=== PATIENT | male | born 1975 | race Hispanic/Latino ===

== ENCOUNTER 2022-10-07 12:25 | Emergency (ER) | payer SELFPAY ==
--- OUTSIDE RECORDS SUMMARY | 2022-10-07 12:28 | XMS REPORT | Continuity of Care Document ---
:1975 Author Organization [facility] Address [address] [address] [address] [place] [address] Care Team Providers Name Role Phone SONJA Attending Clinician Unavailable SONJA Admitting Clinician Unavailable Payers Payer Name Policy Type Policy Number Effective Date Expiration Date S ource Problems This patient has no known problems. Allergies, Adverse Reactions, Alerts This patient has no known allergies or adverse reactions. Medications This patient has no known medications. Immunizations Ordered Immunization Filled Immunization Date Status Commen ts Source Name Name COVID-19 vaccine, COVID-19 vaccine, 2020-05-17 Completed [facility] vector-nr, rS-Ad26, vector-nr, rS-Ad26, 09:26:13 [facility] PF, 0.5 mL PF, 0.5 mL Outreach Progr am Procedures This patient has no known procedures. Encounters Start End Encounter Admission Attending Care Care Encounter Source Date/Time Date/Time Type Type Clinicians Facility Department ID 2020-05-21 2020-05-21 Outpatient BLAYNE REDDY [facility] [id number] [place] 01:03:00 01:03:00 [facility] [id number] [facility] 2020-05-17 2020-05-17 Outpatient [facility] [id number] [place] 09:28:00 09:28:[id number] [facility] [facility] 2020-05-17 2020-05-17 [facility] [place] - [id number] [place] 00:00:00 00:00:00 Aiden Horowitz MD: [id number] Jew Ep[facility] copy chief [place] [address] [facility] [address], [facility] Program [id number] , Ph. 2020-05-16 2020-05-16 Outpatient [facility] [id number] [place] 01:58:00 01:58:00 [facility] [id number] [facility] This patient has no known results.
[2022-10-07] MEDS ORDERED: NA CHLORIDE 0.9% 1,000 ML ONE (13:07)
[2022-10-07 13:13] LABS: Absolute Lymphocytes (CBC) 1.8 K/uL (0.7-4.9); Hematocrit 47.6 % (39.6-49.0); Lymphocytes % 19.3 % (15.3-44.8); MCV 85.4 fL (80-100); MPV 9.2 fL (7.6-11.3); Platelets 244 thou/uL (152-406); RBC Red Blood Cell Count 5.58 M/uL (4.33-5.43)
[2022-10-07 13:26] LABS: Albumin 3.4 g/dL (3.4-5.0); Bilirubin Total 0.7 mg/dL (0.2-1.0); Potassium 3.8 mEq/L (3.5-5.1); Protein, Total 7.2 g/dL (6.4-8.2)
--- NOTE | 2022-10-07 13:36 | RAD REPORT ---
EXAM DESCRIPTION: CT - Abdomen Pelvis Wo Contrast - 10/07/2022 1:20 pm CLINICAL HISTORY: Abdominal pain. Right flank/ RLQ pain COMPARISON: <Comparisons> TECHNIQUE: CT imaging of the abdomen and pelvis was performed without contrast. Solid organ, bowel a nd vascular assessment is limited due to lack of IV and oral contrast. All CT scans are performed using dose optimization technique as appropriate and may include automated exposure control or mA/KV adjustment according to patient size. FINDINGS: The lower lung gama are clear. The liver, spleen, pancreas, adrenal glands and left kidney are within normal limits for a limited no n-contrast examination.5 mm calculus proximal right ureter with mild right hydronephrosis. Punctate c alculus is seen superior calyx right kidney. No bowel obstruction, free air, free fluid or abscess. Diverticulosis coli without diverticulitis. Th e appendix is normal. The osseous structures are within normal limits.Moderate to large left inguinal hernia. IMPRESSION: 5 mm stone proximal right ureter resulting mild right hydronephrosis and hydroureter. A limited non-contrast examination was performed as detailed.
[2022-10-07 14:24] LABS: Specific Gravity > 1.030 (1.005-1.030); Urine Bacteria None Seen /HPF (<20); Urine Bilirubin NEGATIVE (Negative); Urine Blood 3+ (OVER) (Negative); Urine Clarity Extremely Turbid (Clear); Urine Color Yellow (Yellow); Urine Glucose 4+ (Over) (Negative); Urine Mucus Slight /HPF (None Seen); Urine Protein 1+ (Negative); Urine RBC >50 /HPF (None Seen); Urine Urobilinogen 1+ (Normal)
[2022-10-07] MEDS ORDERED: KETOROLAC 30 MG/ML INJ ONE (14:47)
--- NOTE | 2022-10-07 14:52 | EDPHYS ---
Physician Documentation [facility] Name: Al Randall Age: 47 yrs Sex: Male : 1975 Arrival Date: 10/07/2022 Time: 12:25 Bed 14 Private MD: ED Physician Velasquez Castillo HPI: 10/07 12:52 This 47 yrs old Male presents to ER via Ambulatory with complaints of ms3 Abdominal Pain, Low Back Pain. 12:52 47-year-old male with past medical history of kidney stones presents for right lower ms3 back pain that radiates to his right lower abdomen. Patient states the pain was a 7/10 and is currently 2/10 and described as being sharp. Patient states pain is worse with walking. Patient states he took 600 mg ibuprofen with relief of his pain. Patient denies fevers, chills.. 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 - Social history:: Smoking status: Patient denies any tobacco usage or history of. ROS: 12:52 Constitutional: Negative for fever, and chills. Neck: Negative for injury, pain, and ms3 swelling, Cardiovascular: Negative for chest pain, and palpitations. Respiratory: Negative for shortness of breath, cough, wheezing, and pleuritic chest pain, Abdomen/GI: Negative for abdominal pain, nausea, vomiting, diarrhea, and constipation. 12:52 Skin: Negative for injury, rash, and discoloration, Psych: Negative for depression, anxiety, suicide ideation, homicidal ideation, and hallucinations. 12:52 Back: Positive for flank pain, on the right. 12:52 All other systems are negative. Exam: 12:52 Constitutional: This is a well developed, well nourished patient who is awake, alert, ms3 and in no acute distress. Head/Face: Normocephalic, atraumatic. Eyes: Pupils equal round and reactive to light, extra-ocular motions intact. Lids and lashes normal. Conjunctiva and sclera are non-icteric and not injected. Periorbital areas with no swelling, redness, or edema. Neck: Trachea midline, no cervical lymphadenopathy. Supple, full range of motion without nuchal rigidity, or vertebral point tenderness. No Meningismus. Chest/axilla: Normal chest wall appearance and motion. Nontender with no deformity. Cardiovascular: Regular rate and rhythm with a normal S1 and S2. No gallops, murmurs, or rubs. Normal PMI, no JVD. No pulse deficits. Respiratory: Lungs have equal breath sounds bilaterally, clear to auscultation and percussion. No rales, rhonchi or wheezes noted. No increased work of breathing, no retractions or nasal flaring. 12:52 Skin: Warm, dry with normal turgor. Normal color with no rashes, no lesions, and no evidence of cellulitis. MS/ Extremity: Pulses equal, no cyanosis. Neurovascular intact. Full, normal range of motion. 12:52 Abdomen/GI: Inspection: abdomen appears normal, Bowel sounds: normal, Palpation: moderate abdominal tenderness, in the right lower quadrant. Vital Signs: 12:32 BP 143 / 97; Pulse 112; Resp 24; Temp 97.9; Pulse Ox 99% ; Weight 104.33 kg; Height 5 me1 ft. 9 in. ; 14:00 BP 128 / 96; Pulse 82; Resp 16; Pulse Ox 100% on R/A; db 15:00 BP 141 / 96; Pulse 84; Resp 16; Pulse Ox 95% on R/A; db 12:32 Body Mass Index 33.96 (104.33 kg, 175.26 cm) me1 MDM: 12:51 Patient medically screened. ms3 12:52 Differential diagnosis: UTI, Kidney stone vs appendicitis. ms3 14:28 Data reviewed: vital signs, nurses notes, lab test result(s), radiologic studies, CT ms3 scan, and as a result, I will discharge patient. Counseling: I had a detailed discussion with the patient and/or guardian regarding: the historical points, exam findings, and any diagnostic results supporting the discharge/admit diagnosis, lab results, radiology results, the need for outpatient follow up, to return to the emergency department if symptoms worsen or persist or if there are any questions or concerns that arise at home. ED course: Discussed CT findings with the patient. Patient understands and agrees with plan to follow-up with urology in 2 to 3 days. Will give patient 10 mg Toradol IV as he states his pain has returned.. 10/07 12:51 Order name: CBC with Diff; Complete Time: 13:43 ms3 10/07 12:51 Order name: CMP; Complete Time: 13:43 ms3 10/07 12:51 Order name: Urinalysis w/ reflexes; Complete Time: 14:30 ms3 10/07 12:51 Order name: CT Abd/Pelvis - Without Contrast; Complete Time: 13:43 ms3 10/07 12:51 Order name: IV Saline Lock; Complete Time: 13:02 ms3 10/07 12:51 Order name: Labs collected and sent; Complete Time: 13:02 ms3 Administered Medications: 13:00 Drug: NS 0.9% IV 1000 ml Route: IV; Rate: 1 bolus; Site: right antecubital; db 14:30 Follow up: Response: No adverse reaction; IV Status: Completed infusion; IV Intake: db 1000ml 14:42 Drug: Ketorolac IVP 10 mg 10 mg Route: IVP; Site: right antecubital; db 15:32 Follow up: Response: No adverse reaction db Disposition Summary: 10/07/22 14:51 Discharge Ordered Location: Home ms3 Condition: Stable ms3 Diagnosis - Right ureteralithiasis with mild hydronephrosis ms3 - Right flank pain ms3 Followup: ms3 - With: - When: 2 - 3 days - Reason: Recheck today's complaints Discharge Instructions: - Discharge Summary Sheet ms3 - Kidney Stones, [id number] ms3 Forms: - Medication Reconciliation Form ms3 - Thank You Letter ms3 - Antibiotic Education ms3 - Prescription Opioid Use ms3 - Patient Portal Instructions ms3 - Leadership Thank You Letter ms3 Prescriptions: - tamsulosin 0.4 mg Oral capsule - take 1 capsule by ORAL route every 24 hours; 20 capsule; Refills: 0, Product ms3 Selection Permitted - Ibuprofen 600 mg Oral Tablet - take 1 tablet by ORAL route every 6 hours As needed take with food; 30 tablet; ms3 Refills: 0, Product Selection Permitted Signatures: Dispatcher [employer] Velasquez Ryan DO DO ms3 Dea Choi, RN RN db Jennifer Lim RN RN me1
--- NOTE | 2022-10-07 14:52 | ER ---
Nurse's Notes [facility] Name: Al Randall Age: 47 yrs Sex: Male : 1975 Arrival Date: 10/07/2022 Time: 12:25 Bed 14 Private MD: Diagnosis: Right ureteralithiasis with mild hydronephrosis;Right flank pain Presentation: 10/07 12:32 Chief complaint: Patient states: RLQ PAIN RADIATING TO R GROIN x1 HR. Coronavirus me1 screen: At this time, the client does not indicate any symptoms associated with coronavirus-19. Ebola Screen: No symptoms or risks identified at this time. Initial Sepsis Screen: Does the patient meet any 2 criteria? No. Patient's initial sepsis screen is negative. Does the patient have a suspected source of infection? No. Patient's initial sepsis screen is negative. Risk Assessment: Do you want to hurt yourself or someone else? Patient reports no desire to harm self or others. Onset of symptoms was October 07, 2022 at 11:30. 12:32 Method Of Arrival: Ambulatory [facility] [place] 12:32 Acuity: KERRIE 3 me1 Triage Assessment: 12:39 General: Appears in no apparent distress. comfortable, Behavior is calm, cooperative. db Pain: Complains of pain in abdomen. GI: Abdomen is flat, non-distended. 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 - Social history:: Smoking status: Patient denies any tobacco usage or history of. Screenin:00 [facility] ED Fall Risk Assessment (Adult) History of falling in the last 3 months, db including since admission No falls in past 3 months (0 pts) Confusion or Disorientation No (0 pts) Intoxicated or Sedated No (0 pts) Impaired Gait No (0 pts) Mobility Assist Device Used No (0 pt) Altered Elimination No (0 pt) Score/Fall Risk Level 0 - 2 = Low Risk Oriented to surroundings, Maintained a safe environment. Abuse screen: Denies threats or abuse. Denies injuries from another. Nutritional screening: No deficits noted. Tuberculosis screening: No symptoms or risk factors identified. Assessment: 13:02 Reassessment: Patient appears in no apparent distress at this time. Patient and/or db family updated on plan of care and expected duration. Pain level reassessed. Patient is alert, oriented x 3, equal unlabored respirations, skin warm/dry/pink. General: Appears in no apparent distress. comfortable, Behavior is calm, cooperative. Pain: Complains of pain in abdomen. Neuro: Level of Consciousness is awake, alert, obeys commands, Oriented to person, place, time, situation. GI: Abdomen is flat, Bowel sounds present X 4 quads. Abd is soft X 4 quads Abdomen is tender to palpation in right upper quadrant and right lower quadrant. 15:20 Reassessment: Patient appears in no apparent distress at this time. Patient and/or db family updated on plan of care and expected duration. Pain level reassessed. Patient is alert, oriented x 3, equal unlabored respirations, skin warm/dry/pink. Patient states feeling better. Patient states symptoms have improved. Vital Signs: 12:32 BP 143 / 97; Pulse 112; Resp 24; Temp 97.9; Pulse Ox 99% ; Weight 104.33 kg; Height 5 me1 ft. 9 in. ; 14:00 BP 128 / 96; Pulse 82; Resp 16; Pulse Ox 100% on R/A; db 15:00 BP 141 / 96; Pulse 84; Resp 16; Pulse Ox 95% on R/A; db 12:32 Body Mass Index 33.96 (104.33 kg, 175.26 cm) me1 ED Course: 12:28 Patient arrived in ED. mg5 12:32 Velasquez Castillo DO is Attending Physician. ms3 12:33 Triage completed. me1 12:39 Dea Choi, RN is Primary Nurse. db 12:39 Arm band placed on Patient placed in an exam room. db 12:50 Inserted saline lock: 20 gauge in right antecubital area, using aseptic technique. db Blood collected. 13:20 CT Abd/Pelvis - Without Contrast In Process Unspecified. EDMS 14:51 Artis Suazo MD is Referral Physician. ms3 15:33 Patient has correct armband on for positive identification. Bed in low position. Call db light in reach. Side rails up X 1. Provided Education on: DISCHARGE. 15:33 No provider procedures requiring assistance completed. IV discontinued, intact, db bleeding controlled, No redness/swelling at site. Administered Medications: 13:00 Drug: NS 0.9% IV 1000 ml Route: IV; Rate: 1 bolus; Site: right antecubital; db 14:30 Follow up: Response: No adverse reaction; IV Status: Completed infusion; IV Intake: db 1000ml 14:42 Drug: Ketorolac IVP 10 mg 10 mg Route: IVP; Site: right antecubital; db 15:32 Follow up: Response: No adverse reaction db Medication: 15:33 VIS not applicable for this client. db Intake: 14:30 IV: 1000ml; Total: 1000ml. db Outcome: 14:51 Discharge ordered by . ms3 15:33 Discharged to home ambulatory. db 15:33 Condition: stable 15:33 Discharge instructions given to patient, Instructed on discharge instructions, follow up and referral plans. Prescriptions given X 2. 15:34 Patient left the ED. db Signatures: Dispatcher [employer] Velasquez Ryan DO DO ms3 Dea Choi RN RN Jennifer Lim, ALEIDA RN me1 Danielle Lees mg5
[2022-10-07 16:01] VITALS: TEMP 97.9
[2022-10-07 16:06] VITALS: BP 141/96; O2SAT 95
== END 2022-10-07 15:34 | disposition home or self-care (01) ==
LOC: ER 12:25
DX: N13.2 Hydronephrosis with renal and ureteral calculous obstruction (principal); R10.31 Right lower quadrant pain; M54.50 Low back pain, unspecified; Z87.442 Personal history of urinary calculi; Z88.2 Allergy status to sulfonamides
CPT/HCPCS: 36415; 74176; 80053; 81001; 85025; J7030